=== PATIENT | male | born 1940 | race African-American/Black ===

== ENCOUNTER 2018-08-02 00:03 | Inpatient (IN) | payer MEDICARE, MEDICAID, OTHER ==
[~2018-08-02] VITALS: Ht 177.8 cm; Wt 57.4 kg
[2018-08-02] MEDS ORDERED: SODIUM CHLORIDE 0.9% 1,000 ML IV ONE (01:37)
[2018-08-02 02:34] LABS: HEMATOCRIT. 23.7 % (42.0-52.0); MEAN CORPUSCULAR HEMOGLOBIN 36.9 pg (28.0-32.0); MEAN CORPUSCULAR VOLUME 109.8 fL (80.0-94.0); MEAN PLATELET VOLUME 8.6 fl (7.4-10.4); PLATELET 145 x1000/uL (130-400); RED BLOOD CELL COUNT 2.16 mill/uL (4.7-6.1); RED CELL DISTRIBUTION WIDTH 17.1 % (11.6-14.6)
[2018-08-02 02:40] LABS: PROTHROMBIN TIME 10.1 sec (9.1-11.1)
[2018-08-02 02:41] LABS: CHLORIDE 108 mEq/L (98-107)
[2018-08-02 02:47] LABS: ETHANOL BLOOD < 10 mg/dL
[2018-08-02 03:31] LABS: CLARITY URINE CLEAR (CLEAR); COLOR URINE YELLOW (YELLOW); KETONES URINE NEGATIVE (NEGATIVE); LEUKOCYTE ESTERASE URINE NEGATIVE (NEGATIVE); NITRITE URINE NEGATIVE (NEGATIVE); OCCULT BLOOD URINE NEGATIVE (NEGATIVE); PH URINE 5.5 (4.5-8.0); PROTEIN URINE NEGATIVE (NEGATIVE); SPECIFIC GRAVITY URINE 1.022 (1.005-1.030); UROBILINOGEN URINE 0.2 E.U./dL (0.2-1.0)
[2018-08-02 03:57] LABS: *AMPHETAMINES SCREEN URINE NEGATIVE (NEGATIVE); *BARBITURATES SCREEN URINE NEGATIVE (NEGATIVE); *BENZODIAZEPINES SCREEN URINE NEGATIVE (NEGATIVE); *COCAINE SCREEN URINE NEGATIVE (NEGATIVE); CANNABINOID URINE SCREEN NEGATIVE (NEGATIVE); METHADONE URINE SCREEN NEGATIVE (NEGATIVE); OPIATES URINE SCREEN NEGATIVE (NEGATIVE); PHENCYCLIDINE URINE SCREEN NEGATIVE (NEGATIVE)
[2018-08-02] MEDS ORDERED: ACETAMINOPHEN 325MG TABLET PO PRN ×2 (04:15→11:30)
[2018-08-02 07:57] LABS: PLATELET ESTIMATE NORMAL
[2018-08-02] MEDS ORDERED: CLONIDINE 0.1MG TABLET PO PRN (11:30)
[2018-08-02] MEDS ORDERED: GUAIFENESIN 200MG/10ML SUGAR FREE UDC PO PRN (11:30)
[2018-08-02] MEDS ORDERED: DIPHENHYDRAMINE 50MG/ML VIAL IV PRN (11:30)
[2018-08-02] MEDS ORDERED: IPRATROPIUM/ALBUTEROL 0.5-3(2.5)MG/3ML NEB INH PRN (11:30)
[2018-08-02] MEDS ORDERED: MAGNESIUM/ALUMINUM HYDROXIDE/SIMETHICONE 30ML UDC PO PRN (11:30)
[2018-08-02] MEDS ORDERED: ONDANSETRON HCL 4MG/2ML INJ IV PRN (11:30)
[2018-08-02 14:38] VITALS: BP 138/69
[2018-08-02 16:29] VITALS: BP 133/68
[2018-08-02] MEDS: SODIUM CHLORIDE 0.9% INJ 3ML FLUSH IVF SCH ×2 (18:22→21:43)
[2018-08-02 18:35] LABS: TOTAL IRON BINDING CAPACITY 282 ug/dL (250-450)
[2018-08-02 18:37] LABS: T4 FREE 0.92 ng/dL (0.76-1.46)
[2018-08-02 18:59] LABS: VITAMIN B12 SERUM 356 pg/mL (211-911)
[2018-08-02 20:00] VITALS: BP 103/58
[2018-08-02 23:55] LABS: CREATINE KINASE 67 IU/L (39-308)
[2018-08-02 23:56] LABS: CREATINE KINASE MB FRACTION < 1.0 ng/mL (0.5-3.6)
[2018-08-03] VITALS: BP 110/60
[2018-08-03 04:00] VITALS: BP 111/61
[2018-08-03] MEDS: SODIUM CHLORIDE 0.9% INJ 3ML FLUSH IVF SCH ×3 (06:35→21:41)
[2018-08-03 07:53] LABS: CREATINE KINASE 55 IU/L (39-308)
[2018-08-03 07:54] LABS: CREATINE KINASE MB FRACTION < 1.0 ng/mL (0.5-3.6)
[2018-08-03 08:00] VITALS: BP 96/52
[2018-08-03 11:34] VITALS: BP 102/58
[2018-08-03] MEDS ORDERED: INFLUENZA VIRUS VACCINE(AFLURIA) 0.5ML SYR IM ONE (13:00)
[2018-08-03] MEDS ORDERED: CYANOCOBALAMIN 1000MCG/ML VIAL IM SCH (13:45)
[2018-08-03] MEDS: ENOXAPARIN 40MG/0.4ML SYR SUBCUT SCH (15:15)
[2018-08-03 15:48] VITALS: BP 120/61
[2018-08-03 15:54] LABS: CREATINE KINASE 50 IU/L (39-308)
[2018-08-03 15:56] LABS: CREATINE KINASE MB FRACTION < 1.0 ng/mL (0.5-3.6)
[2018-08-03 20:00] VITALS: BP 128/66
[2018-08-04] VITALS (11 sets, daily range): BP systolic 96–136; BP diastolic 46–67
[2018-08-04] MEDS: SODIUM CHLORIDE 0.9% INJ 3ML FLUSH IVF SCH ×3 (05:46→21:21)
[2018-08-04 06:53] LABS: CHLORIDE 110 mEq/L (98-107)
[2018-08-04 07:03] LABS: PHOSPHORUS 3.4 mg/dL (2.5-4.9)
[2018-08-04 08:04] LABS: BASOPHILS % 0.7 % (0.0-2.0); EOSINOPHILS % 3.7 % (0.0-5.0); LYMPHOCYTES % 17.9 % (20.0-50.0); MEAN CORPUSCULAR HEMOGLOBIN 37.1 pg (28.0-32.0); MEAN CORPUSCULAR VOLUME 110.8 fL (80.0-94.0); MEAN PLATELET VOLUME 8.3 fl (7.4-10.4); NEUTROPHILS % 67.7 % (40.0-76.0); PLATELET 138 x1000/uL (130-400); RED BLOOD CELL COUNT 1.83 mill/uL (4.7-6.1)
[2018-08-04] MEDS: ENOXAPARIN 40MG/0.4ML SYR SUBCUT SCH (08:25)
[2018-08-04 08:37] LABS: HEMOGLOBIN. 6.8 g/dL (14.0-18.0)
[2018-08-04 08:38] LABS: HEMATOCRIT. 20.2 % (42.0-52.0)
[2018-08-04 15:45] LABS: FOLIC ACID (FOLATE) SERUM >20 ng/mL ng/mL (>5.38)
[2018-08-04 21:24] LABS: HEMATOCRIT 24.2 % (42.0-52.0); HEMOGLOBIN 8.1 g/dL (14.0-18.0)
[2018-08-05] VITALS (12 sets, daily range): BP systolic 62–137; BP diastolic 36–86
[2018-08-05 02:43] LABS: HEMOGLOBIN 7.6 g/dL (14.0-18.0)
[2018-08-05] MEDS: SODIUM CHLORIDE 0.9% INJ 3ML FLUSH IVF SCH ×3 (05:18→23:12)
[2018-08-05 07:00] LABS: BASOPHILS % 0.7 % (0.0-2.0); EOSINOPHILS % 5.3 % (0.0-5.0); HEMATOCRIT. 23.6 % (42.0-52.0); HEMOGLOBIN. 7.9 g/dL (14.0-18.0); MEAN CORPUSCULAR HEMOGLOBIN 35.2 pg (28.0-32.0); MEAN PLATELET VOLUME 8.1 fl (7.4-10.4); MONOCYTES % 10.3 % (2.0-8.0); NEUTROPHILS % 65.7 % (40.0-76.0); PLATELET 148 x1000/uL (130-400); RED BLOOD CELL COUNT 2.24 mill/uL (4.7-6.1); RED CELL DISTRIBUTION WIDTH 23.2 % (11.6-14.6)
[2018-08-05 07:07] LABS: CHLORIDE 110 mEq/L (98-107)
[2018-08-05] MEDS: PANTOPRAZOLE 40MG DR TABLET PO SCH (13:23)
[2018-08-05 16:04] LABS: HEMATOCRIT 28.9 % (42.0-52.0)
[2018-08-06 03:57] VITALS: BP 116/64
[2018-08-06] MEDS: PANTOPRAZOLE 40MG DR TABLET PO SCH (05:59)
[2018-08-06] MEDS: SODIUM CHLORIDE 0.9% INJ 3ML FLUSH IVF SCH ×2 (05:59→12:21)
[2018-08-06 08:00] VITALS: BP_SYST 116; BP_SYST 125; BP_SYST 71; BP_DIAS 45; BP_DIAS 54; BP_DIAS 61
[2018-08-06 12:05] VITALS: BP 106/58
[2018-08-06 15:27] VITALS: BP 145/62
[2018-08-06 16:00] VITALS: BP 145/62
[2018-08-06] MEDS ORDERED: SODIUM CHLORIDE 0.9% 1,000 ML IV SCH (16:15)
== END 2018-08-06 16:40 | disposition home or self-care (01) | DRG 74 ==
LOC: ER 00:03 → 5WST 04:19 → EDBEDREQTM 04:19 → EDBEDREQ 04:19 → ENRESERV 12:09 → 5WST 12:48
PROVIDERS: ADMIT Internal Medicine; ATTEND Internal Medicine
PROC: 30233N1 Transfusion of Nonautologous Red Blood Cells into Peripheral Vein, Percutaneous Approach (ICD-10-PCS; principal; 2018-08-05)
DX: G90.8 Other disorders of autonomic nervous system (principal); K92.2 Gastrointestinal hemorrhage, unspecified; N17.9 Acute kidney failure, unspecified; D53.9 Nutritional anemia, unspecified; D63.8 Anemia in other chronic diseases classified elsewhere; J44.9 Chronic obstructive pulmonary disease, unspecified; E53.8 Deficiency of other specified B group vitamins; E78.5 Hyperlipidemia, unspecified; E86.0 Dehydration; I35.1 Nonrheumatic aortic (valve) insufficiency; I95.1 Orthostatic hypotension; F10.10 Alcohol abuse, uncomplicated; F17.210 Nicotine dependence, cigarettes, uncomplicated; Z60.2 Problems related to living alone; I10 Essential (primary) hypertension; W18.39XA Other fall on same level, initial encounter; Z83.3 Family history of diabetes mellitus; Y93.89 Activity, other specified; Y92.89 Other specified places as the place of occurrence of the external cause; Y99.8 Other external cause status; Z85.46 Personal history of malignant neoplasm of prostate; Z92.3 Personal history of irradiation; Z82.49 Family history of ischemic heart disease and other diseases of the circulatory system; Z86.73 Personal history of transient ischemic attack (TIA), and cerebral infarction without residual deficits
CPT/HCPCS: 36415; 71045; 76700; 78582; 80048; 80061; 80076; 80305; 82270; 82550; 82553; 82607; 82746; 83036; 83540; 83550; 83735; 83880; 84100; 84153; 84439; 84443; 84484; 85014; 85018; 85044; 85379; 85384; 86850; 86900; 86920; 90686; 93005; 93306; 93880; 93970; 96360; 96361; 97162; 99285; A9558; G0482; J1650; J3420; J7030; J7040; P9016; G0103

== ENCOUNTER → 2023-07-14 | Outpatient (CLI) | payer MEDICARE, MEDICAID ==
[~2023-07-14] MED LIST: BARIUM SULFATE 176 GM SUSP.RECON ONE; EPLE25TA10 MT; EZ-HD SUSPENSION(BARIUM SULFATE 340GM) PO ONE; FERR-63 PO; MIDO5TAB4 MT; SIMETHICONE/SOD BICARB/CIT AC 1 EACH GRAN.EF.PK ONE; THIA100T72 PO
== END | disposition home or self-care (01) ==
LOC: RAD 09:25
PROVIDERS: ATTEND Internal Medicine
DX: R13.19 Other dysphagia (principal)
CPT/HCPCS: 74220; J7517